=== PATIENT | male | born 1945 | race African-American/Black ===

== ENCOUNTER 2019-12-22 12:53 | Outpatient (CLI) | payer MEDICARE, SELFPAY ==
[2019-12-22 13:21] LABS: Blood Urea Nitrogen 13 mg/dL (9-20); Calcium 9.3 mg/dL (8.4-10.2); Carbon Dioxide 31 mmol/L (22-30); Chloride 105 mmol/L (98-107); Estimated Glomerular Filt Rate > 60; Glucose 111 mg/dL (75-110); Potassium 4.1 mmol/L (3.4-5.0); Sodium 140 mmol/L (137-145)
--- NOTE | 2019-12-22 13:46 | ECG_ITS ---
Measurements Intervals [place] Rate: 61 P: 60 VA: 191 QRS: 48 QRSD: 102 T: 50 QT: 398 QTc: 403 Interpretive Statements SINUS RHYTHM NORMAL ECG Electronically Signed On 12-22-2019 14:12:00 CDT by Mumtaz Barlow D.O.
== END 2019-12-22 12:54 | disposition home or self-care (01) ==
PROVIDERS: PCP Internal Medicine; Visit Provider Anesthesiology
DX: E11.9 Type 2 diabetes mellitus without complications (principal)
CPT/HCPCS: 36415; 80048; 93005

== ENCOUNTER 2019-12-30 02:16 | Day surgery (SDC) | payer MEDICARE, SELFPAY ==
[2019-12-22 10:24] VITALS: BMI 34.9
--- NOTE | 2019-12-23 15:37 | P.HP_ITS ---
History of Present Illness History of Present Illness Consent: Risks, benefits, and alternatives have been discussed and questions answered. Patient agrees to proceed with procedure. Chief complaint: Prostate CA Narrative: Chris Ng is a 74 year old male initially diagnosed with low risk prostate cancer approximately 1 year ago. At the time of confirmatory biopsy, however, he showed signs of clinical progression. After reconsideration with his primary urologist, Dr. delacruz, he has now elected to proceed with definitive pelvic radiation. He's opted for placement of SpaceOAR to minimize risk of rectal irritation. Pt. aware of risks of this procedure including, but not limited to, rectal injury, urinary tract infection with possible sepsis or septic shock, hematuria and inability to deliver the SpaceOAR. He also aware there is no alternative procedure to accomplish the same ends at this time. Review of Systems Cardiovascular: Cardiovascular: Denies chest pain, Denies lightheadedness, Denies palpitations and Denies dyspnea Respiratory: Respiratory: Denies dyspnea Gastrointestinal: Gastrointestinal: Denies diarrhea, Denies nausea and Denies vomiting Genitourinary: Genitourinary: Denies hematuria and Denies dysuria Endocrine: Endocrine: Denies palpitations Meds Home Medications and Allergies Home Medications Medication Instructions Recorded Confirmed Type amlodipine 2.5 mg PO DAILY 12/22/19 12/22/19 History aspirin [Aspir-81] 81 mg PO DAILY 12/22/19 12/22/19 History cholecalciferol (vitamin D3) 50 mcg PO DAILY 12/22/19 12/22/19 History famotidine 20 mg PO DAILY 12/22/19 12/22/19 History finasteride 5 mg PO DAILY 12/22/19 12/22/19 History levothyroxine 137 mcg PO DAILY 12/22/19 12/22/19 History metformin 500 mg PO BID 12/22/19 12/22/19 History rosuvastatin 20 mg HS 12/22/19 12/22/19 History saw palmetto 500 mg PO BID 12/22/19 12/22/19 History sildenafil [Viagra] 100 mg PO DAILY PRN 12/22/19 12/22/19 History valacyclovir 1,000 mg PO DAILY PRN 12/22/19 12/22/19 History Allergies Allergy/AdvReac Type Severity Reaction Status Date / Time No Known Allergies Allergy Verified 12/22/19 11:12 Exam Const: General: no acute distress Resp: Effort & Inspection: normal respiratory effort GI: Inspection: non-distended GI Palp: No abdominal tenderness and No Guarding due to palpation present (GI) Auscultation: normal bowel sounds Assessment and Plan Assessment and plan (1) Prostate cancer: Code(s): C61 - Malignant neoplasm of prostate Status: Acute Assessment and Plan: * Transrectal ultrasonography with transperineal placement of SpaceOAR.
--- NOTE | 2019-12-30 07:33 | WPDHPUPDATE1 ---
History and Physical Update Update Date/Time: 12/30/19 07:33 History and Physical has been reviewed, including an updated exam of the patient. There are NO changes in the patient's condition. Risks, benefits, and alternatives have been discussed and questions answered. Patient agrees to proceed with procedure.
[2019-12-30 12:27] VITALS: BP 148/90; PULSE 68; RESP 20; TEMP 36.2; O2SAT 98
[2019-12-30 12:36] LABS: Glucose Point of Care 92 (65-105)
[2019-12-30] MEDS: LACTATED RINGERS 1,000 ML 30 ML IV CONT (12:41)
--- NOTE | 2019-12-30 13:40 | WPDANESEPPF ---
Anes - Initial Pre Proc Eval Procedure: Operation Date: 12/30/19 14:00 Proposed Procedures p Insertion SpaceOAR Hydrogel System - Fredy Marshall MD Date/Time: 12/30/19 13:40 Surgeon: Fredy Marshall MD Pre Op Diagnosis: Prostate CA Patient Data Age: 74 Gender: M Height: 5 ft 11 in Weight: 114 kg Last Vital Signs Temp 36.2 C L 12/30/19 12:27 Pulse 68 12/30/19 12:27 Resp 20 12/30/19 12:27 BP 148/90 H 12/30/19 12:27 Pulse Ox 98 12/30/19 12:27 Allergies Allergy/AdvReac Type Severity Reaction Status Date / Time No Known Allergies Allergy Verified 12/22/19 11:12 Home Medications Medication Instructions Recorded Confirmed Type amlodipine 2.5 mg PO DAILY 12/22/19 12/30/19 History aspirin [Aspir-81] 81 mg PO DAILY 12/22/19 12/30/19 History cholecalciferol (vitamin D3) 50 mcg PO DAILY 12/22/19 12/30/19 History famotidine 20 mg PO DAILY 12/22/19 12/30/19 History finasteride 5 mg PO DAILY 12/22/19 12/30/19 History levothyroxine 137 mcg PO DAILY 12/22/19 12/30/19 History metformin 500 mg PO BID 12/22/19 12/30/19 History rosuvastatin 20 mg HS 12/22/19 12/30/19 History saw palmetto 500 mg PO BID 12/22/19 12/30/19 History sildenafil [Viagra] 100 mg PO DAILY PRN 12/22/19 12/30/19 History valacyclovir 1,000 mg PO DAILY PRN 12/22/19 12/30/19 History Laboratory Tests 12/30/19 12:34 POC Capillary Glucose 92 mg/dl mg/dl (65-105) Patient hx anesthesia problems: none Family hx anesthesia problems: none PMFSH Past Medical History Medical History Diabetes GERD (gastroesophageal reflux disease) Hyperlipidemia Hypertension JOSUE (obstructive sleep apnea) Anes - Eval Final PreProcedure Day of Procedure 12/30/19 13:40 Patient weight: obese Heart: regular rate and rhythm Lungs: clear to auscultation Airway: Mallampati scale class II Neurological: alert and oriented Last oral intake: >/= 8 hours ASA classification: III Emergent: no Anesthetic plan: proceed Anesthesia type and monitoring: general GIVS and standard monitoring Informed Consent: The patient's anesthetic plan and its attendant risks and benefits were discussed with the patient/family/POA. Questions were solicited and answers provided to the satisfaction of the patient/family/POA.
[2019-12-30] MEDS: ceFAZolin 2 GM/D5W 50 ML 2 GM/50 ML BAG IVPB (14:16)
[2019-12-30 14:42] VITALS: BP 129/94; PULSE 78; RESP 16; TEMP 36.4; O2SAT 100
--- NOTE | 2019-12-30 14:45 | P.OP_ITS ---
Procedure Note - Detailed Date of procedure: 12/30/19 Pre-op diagnosis: Prostate CA Post-op diagnosis: same Procedure performed: Insertion SpaceOAR Description of procedure: This patient has been diagnosed with prostate cancer. Patient has met with a radiation oncologist who has prescribed a course of radiation for treatment of the malignancy. Please refer to the Radiation Oncologist's note for radiation method, dose, number of fractions. After discussing with the radiation oncologist and the patient, it has been agreed upon to proceed with SpaceOAR placement. The purpose of SpaceOAR is to reduce rectal irradiation during radiation therapy by placing an absorbable polyethylene glycol (PEG) hydrogel (SpaceOAR) into perirectal fat space, thereby pushing the rectum away from the prostate. Prior to the procedure, a timeout was performed confirming the patient's identity and planned the procedure. Anesthesia was induced without complication. Antibiotics were administered prophylactically, and the patient completed an enema at home prior to the procedure. The patient was positioned in the dorsal lithotomy position. A transrectal ultrasound probe was inserted per rectum with clear visualization of the prostatic base and apex. SpaceOAR hydrogel was prepared as described in the junior loan processor?s 'Instructions For Use'. Under transrectal ultrasound guidance, a 15 cm 18G needle was inserted, transperineal, through the rectourethralis muscle and the needle tip advanced into the perirectal fat posterior to the prostate. The needle position, and downward bevel, were confirmed in both sagittal and axial hennessy. 3-5cc of St erile Saline was used to hydro-dissect the space between the Denonvilliers? fascia and anterior rectal wall. Aspiration did not yield any bleeding. With the needle tip at mid gland, the axial field was viewed to confirm the needle was not in the rectal wall -- movement of the needle tip without corresponding movement of the rectal wall confirmed perirectal placement. The assembled SpaceOAR delivery system was then attached to the 18G needle. Under ultrasound guidance in the sagittal plane, a smooth, continuous injection technique was used to dispense all 10cc of the SpaceOAR hydrogel into the space between the prostate and rectum. Optimal visualization of the needle during hydrogel administration was maintained at all times. An axial measurement of the space between the prostate (mid gland) and rectum immediately post-SpaceOAR injection was noted and measured 8.7mm. No suspected penetration or compromise of the rectal wall occurred. Anesthesia: GLMA Surgeon: Fredy Marshall MD Estimated blood loss (mL): 0 Drains: No Packing: No Pathology: yes Complications: No immediate complications Condition: stable Disposition: PACU
[2019-12-30 14:52] LABS: Glucose Point of Care 93 (65-105)
[2019-12-30 14:55] VITALS: BP 135/97; PULSE 79; RESP 14; O2SAT 98
[2019-12-30 15:10] VITALS: BP 132/91; PULSE 73; RESP 12; O2SAT 94
[2019-12-30 15:20] VITALS: BP 158/94; PULSE 67
[2019-12-30 15:50] VITALS: BP 169/96; PULSE 66
== END 2019-12-30 16:24 | disposition home or self-care (01) ==
PROVIDERS: PCP Internal Medicine; Visit Provider Urology
PROC: (CPT 55874; principal; 2019-12-30 14:00)
DX: C61 Malignant neoplasm of prostate (principal); I10 Essential (primary) hypertension; E78.5 Hyperlipidemia, unspecified; E11.9 Type 2 diabetes mellitus without complications; G47.33 Obstructive sleep apnea (adult) (pediatric); K21.9 Gastro-esophageal reflux disease without esophagitis; Z79.84 Long term (current) use of oral hypoglycemic drugs; Z79.82 Long term (current) use of aspirin; E66.9 Obesity, unspecified; Z68.35 Body mass index [BMI] 35.0-35.9, adult
CPT/HCPCS: 55874; A9270; J0690; J3010; J7120

== ENCOUNTER 2023-01-29 07:55 | Outpatient (CLI) | payer MEDICARE, SELFPAY ==
--- NOTE | ~2023-01-29 | MR_ITS ---
MRI of the left shoulder Technique: Axial proton-density fat-sat images, coronal proton density fat-sat and T2 fat-sat images, and sagittal T1-weighted and T2 fat-sat images were acquired. Clinical History: Injury Findings: There is moderate to severe AC joint degenerative change. There is bony productive change o f the distal clavicle with small subacromial spur. Coracoclavicular, coracoacromial, and coracohumera l ligaments appear intact. There is complete tear of the supraspinatus tendon as well as the anterior and central portions of th e infraspinatus tendon. A few the posterior most infraspinatus tendon fibers may remain intact. The t orn tendons are retracted to the level of glenoid. Fluid-filled gap measures approximately 5.0 x 4.3 cm in extent. There is severe subscapularis tendinosis, without definite tear. Tendon of long head of the biceps is intact, with severe intra-articular tendinosis. No definite labral tear identified. Humeral head is high riding. Small inferomedial humeral head spur present with moderate diffuse chond romalacia of the humeral head. There is small to moderate glenohumeral joint effusion with fluid pass ing through the rotator cuff defect into the subacromial/subdeltoid bursa. Inferior glenohumeral liga ment is intact. No muscle atrophy or edema evident. Impression: Complete full-thickness tear of the supraspinatus tendon as well as the vast majority of the infraspi natus tendon, as detailed above. Associated high riding humeral head. Severe subscapularis and proximal biceps tendinosis. Advanced AC joint degenerative change. Mild glenohumeral joint degenerative change. Reviewed, dictated and finalized at [facility]. Impression: Complete full-thickness tear of the supraspinatus tendon as well as the vast ma jority of the infraspinatus tendon, as detailed above. Associated high riding h umeral head. Severe subscapularis and proximal biceps tendinosis. Advanced AC joint degenerative change. Mild glenohumeral joint degenerative change.
== END 2023-01-29 07:56 ==
PROVIDERS: PCP Internal Medicine
DX: M75.122 Complete rotator cuff tear or rupture of left shoulder, not specified as traumatic (principal); M19.012 Primary osteoarthritis, left shoulder
CPT/HCPCS: 73221